=== PATIENT | male | born 1950 | race Caucasian/White ===

== ENCOUNTER 2024-09-12 03:07 | Emergency (ER) | payer MEDICARE, OTHER, SELFPAY ==
[2024-09-12 03:19] VITALS: BP 158/89; PULSE 76; RESP 18; TEMP 36.1; O2SAT 97; BMI 25.8
--- NOTE | 2024-09-12 03:40 | ED_ITS ---
HPI - Ear Problem General Chief complaint: Ear/Nose/Throat Problem Stated complaint: left ear pain Time Seen by Provider: 09/12/24 03:33 History of Present Illness HPI Narrative: Patient is a some knee 4-year-old gentleman who has a special shampoo or dry skin. He may have gotten some of that she hip wound is left ear which caused some local irritation and now he has significant swelling in his left ear with some mild pus see discharge. He has had no fevers no chills no night sweats. He has difficulty hearing on his left ear due to the swelling. He has had no nausea no vomiting no other ear nose and throat complaints. Review of Systems Status of ROS: Reports: 10 or more systems reviewed and unremarkable except as noted in History and below [facility] Medical History Hypertension ?I10 - Essential (primary) hypertension (ICD-10) Hypertension ?I10 - Essential (primary) hypertension (ICD-10) Social History Smoking Status: Never smoker How often do you have a drink containing alcohol: never AUDIT-C Alcohol total score: 0 Non-prescribed substance use: denies use service: Yes Exam Narrative: Exam Narrative: EXAM GENERAL: Patient appears comfortable and well. EYES: No scleral icterus. ENT: Right ear is normal left ear he is difficult to examine due to the internal swelling as well as pussy discharge from the left ear canal. THYROID: no thyroid nodules or thyromegaly. LYMPH: No supraclavicular or cervical lymphadenopathy. SKIN: Visible skin seen during exam normal or with benign process only. EXT: No dependent lower extremity pedal edema. HEART: Regular rate and rhythm with no murmurs, rubs, or gallops. LUNGS: Clear to auscultation bilaterally with no crackles or wheezes. ABD: Soft, non tender, non distended. PSYCH: Good eye contact, speech is not pressured. Const: Vital Signs, click to edit/add: Vital Signs - 24 hr 09/12/24 03:19 Temperature 97.0 F L Pulse Rate [Right Radial] 76 Respiratory Rate 18 Blood Pressure [Ri ght Upper Arm] 158/89 H Pulse Oximetry 97 Oxygen Delivery Me thod Room Air Course Course ED Course: Patient seen and examined. Vital Signs Vital signs: Initial Vital Signs Temperature 97.0 F L 09/12/24 03:19 Temperature Source Temporal Artery Scan 09/12/24 03:19 Pulse Rate 76 09/12/24 03:19 Pulse Rhythm Regular 09/12/24 03:19 Pulse Strength 3+ Normal 09/12/24 03:19 Respiratory Rate 18 09/12/24 03:19 Blood Pressure 158/89 H 09/12/24 03:19 Blood Pressure Mean 112 H 09/12/24 03:19 Blood Pressure Position Sitting 09/12/24 03:19 Pulse Oximetry 97 09/12/24 03:19 Oxygen Delivery Method Room Air 09/12/24 03:19 Vital Signs Temperature 97.0 F L 09/12/24 03:19 Pulse Rate 76 09/12/24 03:19 Respiratory Rate 18 09/12/24 03:19 Blood Pressure 158/89 H 09/12/24 03:19 Pulse Oximetry 97 09/12/24 03:19 Oxygen Delivery Method Room Air 09/12/24 03:19 Temperature 97.0 F L 09/12/24 03:19 Pulse Rate 76 09/12/24 03:19 Respiratory Rate 18 09/12/24 03:19 Blood Pressure 158/89 H 09/12/24 03:19 Pulse Oximetry 97 09/12/24 03:19 Oxygen Delivery Method Room Air 09/12/24 03:19 Medical Decision Making MDM Narrative Medical decision making narrative: Patient presents with discharge and pain in the left ear. Examination shows a otitis externa. No other findings were noted. I did prescribe Cortisporin otic 4 drops q.i.d. as well as primary care follow-up. Differential diagnosis includes but not limited to otitis externa otitis media mastoiditis sinusitis. Discharge Plan Discharge Clinical Impression: Otitis externa Patient Disposition: Home, Self-Care Condition: Stable Instructions: Swimmer's Ear (ED) Additional Instructions: Ear drops as directed Tylenol Motrin Rest Follow-up with primary care next week Activity Level: No Restrictions Discharge Diet: Regular Stand Alone Forms: MyHealth Info Instructions
== END 2024-09-12 03:59 | disposition home or self-care (01) ==
LOC: ED 03:53
PROVIDERS: Emergency Provider Internal Medicine
DX: H60.92 Unspecified otitis externa, left ear (principal)
CPT/HCPCS: 99283